=== PATIENT | female | born 1960 | race African-American/Black ===

== ENCOUNTER 2020-06-03 21:04 | Emergency (ER) | payer OTHER ==
[~2020-06-03] VITALS: Ht 162.6 cm; Wt 79.4 kg
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
--- NOTE | 2020-06-03 21:30 | NUR ---
ED Nurse Note: pt reports that she has a safe place to go tonight, that she does not live with her neice and that she will be going back to her own home where her neice is not.
[2020-06-03 21:43] VITALS: BP 185/85
[2020-06-03] MEDS ORDERED: Morphine Sulfate 2mg/ml Inj(IV/IM USE ONLY) IVP ONE (21:45)
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
--- NOTE | 2020-06-03 22:47 | Diagnostic Imaging Report ---
EXAM: XR Right Forearm, 2 Views CLINICAL HISTORY: INJ TECHNIQUE: Frontal and lateral views of the right forearm. COMPARISON: Concurrent radiographs of the right elbow. Findings/impression: Bones/joints: No acute fracture. Right elbow radial head dislocation. Soft tissues: Unremarkable.
--- NOTE | 2020-06-03 22:50 | Diagnostic Imaging Report ---
EXAM: XR Right Elbow Complete, 3 or More Views CLINICAL HISTORY: INJ TECHNIQUE: Frontal, lateral and oblique views of the right elbow. COMPARISON: Concurrent radiographs of the right humerus and forearm. Findings/impression: Right radial head dislocation. No acute fracture. Right elbow joint effusion (arrows).
[2020-06-03] MEDS ORDERED: HYDROmorphone 1mg/ml Carpuject IM ONE (23:00)
[2020-06-03] MEDS ORDERED: Morphine Sulfate 2mg/ml Inj(IV/IM USE ONLY) IM ONE (23:00)
--- NOTE | 2020-06-03 23:00 | NUR ---
ED Nurse Note: Dilaudid returned; meds changed per ERMD
--- NOTE | 2020-06-03 23:05 | NUR ---
ED Nurse Note: Consent for closed reduction of right elbow obtained by ERMD and RN RT/ technician telecommunication systems at bedside
[2020-06-03] MEDS ORDERED: fentaNYL 100 mcg/2 mL IV ONE (23:15)
[2020-06-03] MEDS ORDERED: Midazolam 2mg/2ml Inj IVP ONE (23:15)
[2020-06-03 23:37] VITALS: BP_SYST 161; BP_SYST 181; BP_DIAS 78
[2020-06-03 23:42] VITALS: BP_SYST 168; BP_SYST 185; BP_DIAS 82; BP_DIAS 86
--- NOTE | 2020-06-03 23:45 | NUR ---
ED Nurse Note: Closed reduction done. Pt tolerated sedation and procedure well without complications. Pt was placed in long arm posterior splint. Xray post procedure done
--- NOTE | 2020-06-03 23:46 | Diagnostic Imaging Report ---
EXAM: XR Right Elbow Complete, 2 or More Views CLINICAL HISTORY: PAIN Notes: status post elbow reduction. TECHNIQUE: Frontal, lateral views of the right elbow. COMPARISON: Same day radiographs of the right elbow. Findings/impression: Status post successful reduction of the previously noted displaced right radial head. Persistent right elbow joint effusion.
[2020-06-03] MEDS ORDERED: NARCAN4 MG NS (23:53)
[2020-06-03] MEDS ORDERED: NAPROXEN500 M1 ORAL (23:53)
[2020-06-03] MEDS ORDERED: NORCO 5-325 TA1 EAC1 ORAL (23:53)
[2020-06-03 23:57] VITALS: BP 185/86
[2020-06-04 00:42] VITALS: BP 168/72
--- NOTE | 2020-06-04 00:43 | Diagnostic Imaging Report ---
EXAM: CT Chest Without Intravenous Contrast CLINICAL HISTORY: INJ TECHNIQUE: Axial computed tomography images of the chest without intravenous contrast. CTDI is 10 mGy and DLP is 386.9 mGy-cm. One or more of the following dose reduction techniques were used: automated exposure control, adjustment of the mA and/or kV according to patient size, use of iterative reconstruction technique. COMPARISON: No relevant prior studies available. FINDINGS: Evaluation of the soft tissue and vasculature is limited on this noncontrast exam. Lungs: No consolidation. No evidence of contusion. The central airways are patent. Pleural space: No pneumothorax. No significant effusion. Heart: No cardiomegaly. No significant pericardial effusion. No mediastinal hematoma. Bones/joints: No acute fracture. No dislocation. Soft tissues: Unremarkable. Vasculature: Atherosclerotic vascular calcifications in the thoracic aorta. No thoracic aortic aneurysm. Lymph nodes: Unremarkable. No enlarged lymph nodes. Upper abdomen: Left adrenal adenoma measuring 18 mm incidentally noted. IMPRESSION: No noncontrast CT evidence of an acute intrathoracic traumatic process. No acute fracture. Left adrenal adenoma measuring 18 mm, incidentally noted
--- NOTE | 2020-06-04 00:53 | Diagnostic Imaging Report ---
EXAM: CT Head Without Intravenous Contrast CLINICAL HISTORY: INJ TECHNIQUE: Axial computed tomography images of the head/brain without intravenous contrast. CTDI is 53.4 mGy and DLP is 950.8 mGy-cm. One or more of the following dose reduction techniques were used: automated exposure control, adjustment of the mA and/or kV according to patient size, use of iterative reconstruction technique. COMPARISON: No relevant prior studies available. FINDINGS: Brain: No hemorrhage. No edema or evidence of mass-effect. No significant white matter disease. Incidental note is made of a hyperdense extra-axial lesion arising from the right frontal falx measuring 7 mm (10: 21). Ventricles: Unremarkable. No ventriculomegaly. Bones/joints: No acute fracture. Soft tissues: Unremarkable. Sinuses: Unremarkable as visualized. Mastoid air cells: No mastoid effusion. IMPRESSION: 1. No acute intracranial traumatic process. 2. No acute calvarial fracture. 3. Incidental note is made of a hyperdense extra-axial lesion arising from the right frontal falx measuring 7 mm, likely representing a meningioma.
--- NOTE | 2020-06-04 01:00 | Diagnostic Imaging Report ---
EXAM: CT Maxillofacial Without Intravenous Contrast CLINICAL HISTORY: INJ TECHNIQUE: Axial computed tomography images of the face without intravenous contrast. CTDI is 15.3 mGy and DLP is 343.0 mGy-cm. One or more of the following dose reduction techniques were used: automated exposure control, adjustment of the mA and/or kV according to patient size, use of iterative reconstruction technique. COMPARISON: No relevant prior studies available. FINDINGS: Bones/joints: No acute fracture. Soft tissues: Right perimandibular soft tissue edema (coronal: 17, amanda images). Orbits: Unremarkable. Symmetric and intact. Sinuses: Unremarkable. No air-fluid levels. IMPRESSION: 1. No acute fracture or dislocation. 2. Right perimandibular soft tissue edema/contusion.
--- NOTE | 2020-06-04 01:05 | Diagnostic Imaging Report ---
EXAM: CT Cervical Spine Without Intravenous Contrast CLINICAL HISTORY: PAIN TECHNIQUE: Axial computed tomography images of the cervical spine without intravenous contrast. CTDI is 20.2 mGy and DLP is 468.1 mGy-cm. One or more of the following dose reduction techniques were used: automated exposure control, adjustment of the mA and/or kV according to patient size, use of iterative reconstruction technique. COMPARISON: No relevant prior studies available. FINDINGS: Vertebrae: No dislocation or malalignment. No acute fracture. Discs/spinal canal/neural foramina: No acute findings. No spinal canal stenosis. Mild degenerative osteophytes are noted. Soft tissues: No prevertebral soft tissue edema. IMPRESSION: No acute fracture or dislocation/malalignment. No prevertebral soft tissue edema.
[2020-06-04] MEDS ORDERED: Naproxen 500mg tab ORAL ONE (01:15)
[2020-06-04] MEDS ORDERED: Methocarbamol 750mg tab ORAL ONE (01:15)
[2020-06-04 01:20] VITALS: BP 148/85
[2020-06-04 01:30] VITALS: BP 148/85
--- NOTE | 2020-06-04 01:34 | NUR ---
ER DISCHARGE NOTE: Patient is cleared to be discharged per ERMD, pt is aox4, on room air, with stable vital signs. pt was given dc and prescription instructions, pt was able to verbalize understanding, pt id band and iv site removed without complications. pt is able to ambulate with steady gait and was assisted to the wheelchair and was picked up by family member. pt took all belongings.
== END 2020-06-04 01:30 | disposition home or self-care (01) ==
LOC: EMR 21:48
DX: S53.004A Unspecified dislocation of right radial head, initial encounter (principal); S42.401A Unspecified fracture of lower end of right humerus, initial encounter for closed fracture; D35.02 Benign neoplasm of left adrenal gland; D32.9 Benign neoplasm of meninges, unspecified; S00.83XA Contusion of other part of head, initial encounter; Y04.2XXA Assault by strike against or bumped into by another person, initial encounter; Y92.9 Unspecified place or not applicable; R51.9 Headache, unspecified; I10 Essential (primary) hypertension; E78.5 Hyperlipidemia, unspecified
CPT/HCPCS: 29105; 70450; 70486; 71250; 72125; 73060; 73070; 73080; 73090; 96374; 96375; J2250; J2270; J3010; Z7502; 99291